=== PATIENT | female | born 1995 | race Caucasian/White ===

== ENCOUNTER 2022-05-23 23:06 | Emergency (ER) | payer OTHER ==
[~2022-05-23] VITALS: Ht 154.9 cm; Wt 74.8 kg
[~2022-05-23 23:06] MED LIST: DOXY100C12 PO
[2022-05-23 23:08] VITALS: BP 131/75
--- NOTE | 2022-05-23 23:11 | NUR ---
TO BED AMBULATORY
--- NOTE | 2022-05-23 23:20 | NUR ---
Patient A/Ox4, chest rise and fall symmetrical, resting in bed, no s/s of distress.
[2022-05-23 23:53] LABS: APPEARANCE,URINE CLEAR (CLEAR); BILIRUBIN,URINE NEGATIVE (NEGATIVE); BLOOD, URINE 1+ (NEGATIVE); COLOR,URINE YELLOW (YELLOW); LEUKOCYTE ESTERASE ,URINE NEGATIVE (NEGATIVE); NITRITE, URINE NEGATIVE (NEGATIVE); UGLUCOSE NEGATIVE (NEGATIVE)
[2022-05-24 00:16] LABS: RBC,URINE 0-5 /HPF (0-5); WBC,URINE 0-5 /HPF (0-5)
[2022-05-24 00:40] LABS: BASOPHILS % (AUTO) 0.5 % (0.0-2.0); EOSINOPHILS # (AUTO) 0.2 K/uL (0-0.4); EOSINOPHILS % (AUTO) 2.3 % (0.0-4.0); HEMATOCRIT 35.6 % (36-48); HEMOGLOBIN 11.7 g/dL (12.0-16.0); LYMPHOCYTES # (AUTO) 2.7 K/uL (2.5-16.5); LYMPHOCYTES % (AUTO) 33.4 % (20.5-51.1); MEAN CORPUSCULAR HEMOGLOBIN 29 pg (27-31); MEAN CORPUSCULAR HGB CONC 33 g/dL (33-37); MEAN CORPUSCULAR VOLUME 88.2 fL (80-94); MONOCYTES # (AUTO) 0.4 K/uL (0.8-1.0); MONOCYTES % (AUTO) 5.1 % (1.7-9.3); NEUTROPHILS # (AUTO) 4.8 K/uL (1.8-7.7); NEUTROPHILS % (AUTO) 58.7 % (42.2-75.2); PLATELET COUNT (AUTO) 308 K/uL (140-450); RED BLOOD CELL COUNT(AUTO) 4.04 MIL/uL (4.20-5.40); RED CELL DISTRIBUTION WIDTH 14.7 % (11.6-13.7); WHITE BLOOD COUNT (AUTO) 8.1 K/uL (4.8-10.8)
--- NOTE | 2022-05-24 00:53 | NUR ---
PT TAKEN TO CT
[2022-05-24 00:54] LABS: ALBUMIN 3.6 g/dL (3.4-5.0); ANION GAP 11.2 (8-16); CARBON DIOXIDE 29.6 mmol/L (21-32); CREATININE 0.6 mg/dL (0.6-1.3); POTASSIUM 3.8 mmol/L (3.5-5.1); TOTAL BILIRUBIN 0.1 mg/dL (0.0-1.0)
--- NOTE | 2022-05-24 00:59 | NUR ---
PT RETURN FROM CT TO ER BED 4
--- NOTE | 2022-05-24 01:39 | NUR ---
Patient A/Ox4, chest rise and fall symmetrical, resting in bed, no s/s of distress.
--- NOTE | 2022-05-24 01:40 | NUR ---
Dr. Christie examining patient.
[2022-05-24] MEDS ORDERED: KETOROLAC 30 MG/ML VIAL IM ONE (02:15)
[2022-05-24] MEDS ORDERED: HYDROcodone/APAP 5/325 MG 1 TAB TAB PO ONE (02:15)
--- NOTE | 2022-05-24 03:20 | NUR ---
Patient A/Ox4, chest rise and fall symmetrical, resting in bed, no c/o paion or s/s of distress.
--- NOTE | 2022-05-24 05:25 | NUR ---
Patient A/Ox4, chest rise and fall symmetrical, resting in bed, no c/o paion or s/s of distress.
[2022-05-24] MEDS ORDERED: NAPR-54 PO (05:57)
[2022-05-24] MEDS ORDERED: ACET-8905 PO (05:57)
[2022-05-24] MEDS ORDERED: CEPH-588 PO (05:57)
[2022-05-24] MEDS ORDERED: DIPH25TA53 PO (05:57)
[2022-05-24] MEDS ORDERED: cefTRIAXone 1,000 MG in LIDOCAINE MPF 1% 2.1 ML IM ONE (06:00)
[2022-05-24] MEDS ORDERED: cefTRIAXone 1,000 MG VIAL ONE (06:03)
[2022-05-24] MEDS ORDERED: LIDOCAINE MPF 1% 5 ML ONE (06:03)
[2022-05-24 06:17] VITALS: BP 118/68
== END 2022-05-24 06:18 | disposition home or self-care (01) ==
LOC: MED 23:06
DX: R10.9 Unspecified abdominal pain (principal); R21 Rash and other nonspecific skin eruption; Z79.899 Other long term (current) drug therapy; Z98.890 Other specified postprocedural states
CPT/HCPCS: 36415; 74176; 80053; 81001; 81025; 85025; 96372; 99285; J0696; J1885; J2001